=== PATIENT | female | born 1995 | race Two or more races ===

== ENCOUNTER 2023-11-17 16:51 | Emergency (ER) | payer BC ==
[~2023-11-17] VITALS: Ht 167.6 cm; Wt 56.7 kg
[2023-11-17 17:30] VITALS: TEMP 98.6
[2023-11-17] MEDS ORDERED: ACETAMINOPHEN ES 500 MG TABLET ONE (17:47)
[2023-11-17] MEDS ORDERED: METOCLOPRAMIDE HCL 10 MG TABLET ONE (17:48)
[2023-11-17] MEDS ORDERED: diphenhydrAMINE HCL 50 MG CAPSULE ONE (17:48)
[2023-11-17] MEDS: diphenhydrAMINE HCL 50 MG CAPSULE PO ONE (17:51)
[2023-11-17] MEDS: METOCLOPRAMIDE HCL 10 MG TABLET PO ONE (17:51)
[2023-11-17] MEDS: ACETAMINOPHEN ES 500 MG TABLET PO ONE (17:52)
[2023-11-17] MEDS ORDERED: METO5TAB87 PO (18:01)
[2023-11-17 18:03] VITALS: BP 108/74; O2SAT 98
== END 2023-11-17 18:10 | disposition home or self-care (01) ==
LOC: ER 17:00
DX: G43.909 Migraine, unspecified, not intractable, without status migrainosus (principal)
CPT/HCPCS: 99284; Q0163; J8597